=== PATIENT | female | born 1945 | race Two or more races ===

== ENCOUNTER 2019-12-02 08:16 | Day surgery (SDC) | payer OTHER | END 2019-12-02 16:20 | disposition home or self-care (01) | LOC: AMB-ENDOS 08:16 → ADM 13:15 → AMB-ENDOS 16:20 | PROVIDERS: ATTEND Colon & Rectal Surgery | DX: K62.89 Other specified diseases of anus and rectum (principal); Z12.11 Encounter for screening for malignant neoplasm of colon ==

== ENCOUNTER 2019-12-26 14:32 | Inpatient (IN) | payer OTHER ==
[~2019-12-26] VITALS: Ht 157.5 cm; Wt 72.6 kg
[2020-01-10] MEDS ORDERED: LEVOTHYROXINE25 MCG PO (10:43)
[2020-01-17] MEDS ORDERED: ACETAMINOPHEN325 M1 PO (13:50)
[2020-01-17] MEDS ORDERED: CLARISPRAY9.9 ML NASAL (13:51)
[2020-01-17] MEDS ORDERED: DUI500 PO (14:09)
[2020-01-17] MEDS ORDERED: ZOHYDRO ER15 MG PO (14:21)
== END 2020-01-20 12:59 | disposition home or self-care (01) | DRG 331 ==
LOC: O/R 01-17 06:04 → SURG 01-17 06:04 → SURH 01-17 09:00 → SURG 01-17 15:56
PROVIDERS: ADMIT Colon & Rectal Surgery; ATTEND Colon & Rectal Surgery
PROC: 0DBN4ZZ Excision of Sigmoid Colon, Percutaneous Endoscopic Approach (ICD-10-PCS; 2020-01-17)
PROC: 0DJD8ZZ Inspection of Lower Intestinal Tract, Via Natural or Artificial Opening Endoscopic (ICD-10-PCS; 2020-01-17)
PROC: 0DTP4ZZ Resection of Rectum, Percutaneous Endoscopic Approach (ICD-10-PCS; principal; 2020-01-17 15:45)
DX: K57.30 Diverticulosis of large intestine without perforation or abscess without bleeding (principal); Z20.828 Contact with and (suspected) exposure to other viral communicable diseases